=== PATIENT | female | born 1960 | race Hispanic/Latino ===

== ENCOUNTER 2018-11-24 15:59 | Emergency (ER) | payer BC ==
[2018-11-24 17:01] LABS: Absolute Lymphocytes (CBC) 1.8 K/uL (0.7-4.9); Absolute Monocytes 0.6 K/uL (0.1-1.3); Absolute Neutrophil 4.5 K/uL (1.8-8.0); Basophils % 0.9 % (0-1.3); Hematocrit 39.9 % (36.0-45.0); Lymphocytes % 26.1 % (15.3-44.8); MPV 8.5 fL (7.6-11.3); Monocytes % 7.8 % (3.3-12.3); RBC Red Blood Cell Count 4.68 M/uL (3.86-4.86)
[2018-11-24 17:12] LABS: Protime INR 1.05
--- NOTE | 2018-11-24 17:23 | RAD REPORT ---
EXAM DESCRIPTION: RAD - Chest Single View - 11/24/2018 5:16 pm CLINICAL HISTORY: DYSPNEA Chest pain. COMPARISON: Chest Pa And Lat (2 Views) dated 11/08/2018; Chest Single View dated 06/11/2016; CHEST SI NGLE VIEW dated 11/07/2011; CHEST PA AND LAT 2 VIEW dated 08/20/2005 FINDINGS: Portable technique limits examination quality. The lungs are grossly clear. The heart is normal in size. No displaced fractures. IMPRESSION: No acute intrathoracic process suspected.
[2018-11-24 17:28] LABS: Magnesium 2.2 mg/dL (1.8-2.4); Potassium 3.7 mmol/L (3.5-5.1); Thyroid Stimulating Hormone 1.72 uIU/mL (0.360-3.740)
[2018-11-24] MEDS ORDERED: LORazepam 2 MG/ML VIAL ONE (17:48)
[2018-11-24 18:01] LABS: Urine Blood TRACE (NEG); Urine Glucose NEGATIVE (NEG); Urine Protein NEGATIVE (NEG); Urine Specific Gravity 1.015 (1.005-1.030)
--- NOTE | 2018-11-24 18:04 | ER ---
Nurse's Notes [facility] Name: Kristen Alonzo Age: 58 yrs Sex: Female : 1960 Arrival Date: 11/24/2018 Time: 16:03 Bed 8 Private MD: Diagnosis: Panic disorder [episodic paroxysmal anxiety] without agoraphobia Presentation: 11/24 16:10 Presenting complaint: Patient states: Three weeks ago hit my chest hard, it was checked ch and everything is ok according to my Doctor. I have had pain since. Today I feel like my heart is racing, my jaw hurts, chest pain. I took 1/2 a xanax and it didn't help. Transition of care: patient was not received from another setting of care. Onset of symptoms. Risk Assessment: Do you want to hurt yourself or someone else? Patient reports no desire to harm self or others. Initial Sepsis Screen: Does the patient meet any 2 criteria? No. Patient's initial sepsis screen is negative. Does the patient have a suspected source of infection? No. Patient's initial sepsis screen is negative. Care prior to arrival: None. 16:10 Method Of Arrival: Ambulatory 16:10 Acuity: POLO 3 ch Triage Assessment: 16:14 General: Appears uncomfortable, Behavior is anxious. 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 - Social history:: Smoking status: Patient/guardian denies using tobacco. - Ebola Screening: : Patient negative for fever greater than or equal to 101.5 degrees Fahrenheit, and additional compatible Ebola Virus Disease symptoms Patient denies exposure to infectious person Patient denies travel to an Ebola-affected area in the 21 days before illness onset No symptoms or risks identified at this time. Screenin:52 Abuse screen: Denies threats or abuse. Denies injuries from another. Nutritional hb screening: No deficits noted. Tuberculosis screening: No symptoms or risk factors identified. Fall Risk None identified. Assessment: 16:32 General: Appears in no apparent distress. Behavior is cooperative, anxious, crying. hb Pain: Pain currently is 8 out of 10 on a pain scale. Neuro: Level of Consciousness is awake, alert, obeys commands, Oriented to person, place, time, situation. Cardiovascular: Capillary refill < 3 seconds Patient's skin is warm and dry. Respiratory: Airway is patent Respiratory effort is even, unlabored, Respiratory pattern is regular, symmetrical. GI: No signs and/or symptoms were reported involving the gastrointestinal system. : No signs and/or symptoms were reported regarding the genitourinary system. EENT: No signs and/or symptoms were reported regarding the EENT system. Derm: Skin is intact, is healthy with good turgor, Skin is pink, warm \T\ dry. Musculoskeletal: No signs and/or symptoms reported regarding the musculoskeletal system. 16:54 Reassessment: Pt ambulated to bathroom with steady gait, urine specimen provided. hb Assisted back to med, on monitor. Bed locked in low position, call light within reach. 17:31 Reassessment: Patient appears in no apparent distress at this time. Patient and/or hb family updated on plan of care and expected duration. Pain level reassessed. Patient is alert, oriented x 3, equal unlabored respirations, skin warm/dry/pink. 18:15 Reassessment: Patient appears in no apparent distress at this time. Patient and/or hb family updated on plan of care and expected duration. Pain level reassessed. Patient is alert, oriented x 3, equal unlabored respirations, skin warm/dry/pink. Patient states symptoms have improved. Vital Signs: 16:14 BP 142 / 92; Pulse 113; Resp 20; Temp 97.4; Pulse Ox 99% on R/A; Weight 69.4 kg; Height 5 ft. 4 in. (162.56 cm); Pain 8/10; 17:30 BP 137 / 80; Pulse 85; Resp 14; Pulse Ox 100% on R/A; hb 16:14 Body Mass Index 26.26 (69.40 kg, 162.56 cm) ED Course: 16:03 Patient arrived in ED. mr 16:11 Triage completed. 16:14 Arm band placed on left wrist. Patient placed in an exam room, on a stretcher. ch 16:24 Montserrat Valerio, RN is Primary Nurse. hb 16:27 Anoop Amaral PA is PHCP. jr8 16:27 Ifeanyi Marcelo MD is Attending Physician. jr8 16:45 Patient has correct armband on for positive identification. Placed in gown. Bed in low hb position. Call light in reach. Side rails up X 1. court recording monitor on. Pulse ox on. NIBP on. 16:52 Inserted saline lock: 20 gauge in right antecubital area, using aseptic technique. hb Blood collected. 17:16 XRAY Chest (1 view) In Process Unspecified. EDMS 18:15 No provider procedures requiring assistance completed. IV discontinued, intact, hb bleeding controlled, No redness/swelling at site. Pressure dressing applied. Administered Medications: 17:37 Drug: Ativan 0.5 mg Route: IVP; Site: right antecubital; hb 18:11 Follow up: Response: No adverse reaction; Anxiety decreased hb Outcome: 18:02 Discharge ordered by . jr8 18:15 Discharged to home ambulatory. hb 18:15 Condition: stable 18:15 Discharge instructions given to patient, Instructed on discharge instructions, follow up and referral plans. medication usage, Demonstrated understanding of instructions, follow-up care, medications. 18:27 Patient left the ED. sg Signatures: Dispatcher [employer] EDMI Sheron Miner RN RN Rubens Fernandez RN RN Elsy Tellez mr Anoop Amaral PA PA jr Montserrat Valerio RN RN hb
--- NOTE | 2018-11-24 18:04 | EDPHYS ---
Physician Documentation [facility] Name: Kristen Alonzo Age: 58 yrs Sex: Female : 1960 Arrival Date: 11/24/2018 Time: 16:03 Bed 8 Private MD: ED Physician Ifeanyi Marcelo HPI: 11/24 16:58 This 58 yrs old Female presents to ER via Ambulatory with complaints of jr8 Doesn't Feel Right. 16:58 Patient stated that she had chest trauma on and was seen and evaluated jr8 without acute fracture. Stated that she has been in pain since then but has been managing. Today stated that she started to not feel right. Stated that she feels like her whole body is being electrocuted and is anxious. Stated that she has continued chest pain and shortness of breath now . Severity of symptoms: At their worst the symptoms were moderate in the emergency department the symptoms are unchanged. The patient has not experienced similar symptoms in the past. The patient has been recently seen by a physician:. 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 - Social history:: Smoking status: Patient/guardian denies using tobacco. - Ebola Screening: : Patient negative for fever greater than or equal to 101.5 degrees Fahrenheit, and additional compatible Ebola Virus Disease symptoms Patient denies exposure to infectious person Patient denies travel to an Ebola-affected area in the 21 days before illness onset No symptoms or risks identified at this time. ROS: 16:58 Eyes: Negative for injury, pain, redness, and discharge, ENT: Negative for injury, jr8 pain, and discharge, Neck: Negative for injury, pain, and swelling, Abdomen/GI: Negative for abdominal pain, nausea, vomiting, diarrhea, and constipation, Back: Negative for injury and pain, MS/Extremity: Negative for injury and deformity, Skin: Negative for injury, rash, and discoloration, Neuro: Negative for headache, weakness, numbness, tingling, and seizure. 16:58 Cardiovascular: Positive for chest pain, with movement. 16:58 Respiratory: Positive for shortness of breath, Negative for cough, dyspnea on exertion, sputum production, wheezing. Exam: 16:58 Eyes: Pupils equal round and reactive to light, extra-ocular motions intact. Lids and jr8 lashes normal. Conjunctiva and sclera are non-icteric and not injected. Cornea within normal limits. Periorbital areas with no swelling, redness, or edema. ENT: Nares patent. No nasal discharge, no septal abnormalities noted. Tympanic membranes are normal and external auditory canals are clear. Oropharynx with no redness, swelling, or masses, exudates, or evidence of obstruction, uvula midline. Mucous membranes moist. Neck: Trachea midline, no thyromegaly or masses palpated, and no cervical lymphadenopathy. Supple, full range of motion without nuchal rigidity, or vertebral point tenderness. No Meningismus. Chest/axilla: Normal chest wall appearance and motion. Nontender with no deformity. No lesions are appreciated. Cardiovascular: Regular rate and rhythm with a normal S1 and S2. No gallops, murmurs, or rubs. Normal PMI, no JVD. No pulse deficits. Respiratory: Lungs have equal breath sounds bilaterally, clear to auscultation and percussion. No rales, rhonchi or wheezes noted. No increased work of breathing, no retractions or nasal flaring. Abdomen/GI: Soft, non-tender, with normal bowel sounds. No distension or tympany. No guarding or rebound. No evidence of tenderness throughout. Back: No spinal tenderness. No costovertebral tenderness. Full range of motion. Skin: Warm, dry with normal turgor. Normal color with no rashes, no lesions, and no evidence of cellulitis. MS/ Extremity: Pulses equal, no cyanosis. Neurovascular intact. Full, normal range of motion. Neuro: Awake and alert, GCS 15, oriented to person, place, time, and situation. Cranial nerves II-XII grossly intact. Motor strength 5/5 in all extremities. Sensory grossly intact. Cerebellar exam normal. Normal gait. 16:58 Psych: Behavior/mood is anxious. Vital Signs: 16:14 BP 142 / 92; Pulse 113; Resp 20; Temp 97.4; Pulse Ox 99% on R/A; Weight 69.4 kg; Height ch 5 ft. 4 in. (162.56 cm); Pain 8/10; 17:30 BP 137 / 80; Pulse 85; Resp 14; Pulse Ox 100% on R/A; hb 16:14 Body Mass Index 26.26 (69.40 kg, 162.56 cm) [facility]: 16:27 Patient medically screened. jr8 18:01 Data reviewed: vital signs, nurses notes, lab test result(s), EKG, radiologic studies, jr8 plain films, and as a result, I will discharge patient. Data interpreted: Pulse oximetry: on room air is 100 %. Interpretation: normal. Counseling: I had a detailed discussion with the patient and/or guardian regarding: the historical points, exam findings, and any diagnostic results supporting the discharge/admit diagnosis, lab results, radiology results, the need for outpatient follow up, a family practitioner, to return to the emergency department if symptoms worsen or persist or if there are any questions or concerns that arise at home. Response to treatment: the patient's symptoms have resolved after treatment. 18:02 ED course: Discussed with patient if she is having increased anxiety even on her benzo, jr8 that it is recommended that she get on an SSRI or SNRI combo and then eventually wean off of her Xanax. Patient agreed and would f/u with PCP after the weekend . 11/24 16:37 Order name: Basic Metabolic Panel; Complete Time: 17:50 11/24 16:37 Order name: CBC with Diff; Complete Time: 17:07 11/24 16:37 Order name: Magnesium; Complete Time: 17:50 11/24 16:37 Order name: NT PRO-BNP; Complete Time: 17:50 11/24 16:37 Order name: PT-INR; Complete Time: 17:21 11/24 16:37 Order name: TSH; Complete Time: 17:50 11/24 16:37 Order name: XRAY Chest (1 view); Complete Time: 17:24 11/24 16:37 Order name: EKG; Complete Time: 16:41 11/24 16:37 Order name: Cardiac monitoring; Complete Time: 16:51 11/24 16:37 Order name: EKG - Nurse/Tech; Complete Time: 16:51 11/24 16:37 Order name: T4 Free; Complete Time: 17:50 11/24 16:37 Order name: DD; Complete Time: 17:21 11/24 17:09 Order name: Urine Dipstick--Ancillary (enter results); Complete Time: 18:05 ms 11/24 16:37 Order name: IV Saline Lock; Complete Time: 16:52 11/24 16:37 Order name: Labs collected and sent; Complete Time: 16:52 11/24 16:37 Order name: O2 Per Protocol; Complete Time: 16:52 11/24 16:37 Order name: O2 Sat Monitoring; Complete Time: 16:52 Administered Medications: 17:37 Drug: Ativan 0.5 mg Route: IVP; Site: right antecubital; hb 18:11 Follow up: Response: No adverse reaction; Anxiety decreased hb Disposition: 11/24/18 18:02 Discharged to Home. Impression: Panic disorder [episodic paroxysmal anxiety] without agoraphobia. - Condition is Stable. - Discharge Instructions: Panic Attacks. - Medication Reconciliation Form, Thank You Letter, Antibiotic Education, Prescription Opioid Use form. - Follow up: Private Physician; When: 2 - 3 days; Reason: Recheck today's complaints, Continuance of care, Re-evaluation by your physician. - Problem is new. - Symptoms have improved. Addendum: 11/28/2018 09:53 Co-signature as Attending Physician, Ifeanyi Marcelo MD I agree with the assessment and c [place] plan of care. Signatures: Dispatcher [employer] Sheron Salas RN Rubens Worthington ch, RN RN sg Anderson, Corey, MD MD cha Roszak, Josh, PA PA jr8 Montserrat Valerio RN RN Corrections: (The following items were deleted from the chart) 11/24 18:27 18:02 11/24/2018 18:02 Discharged to Home. Impression: Panic disorder [episodic sg paroxysmal anxiety] without agoraphobia. Condition is Stable. Forms are Medication Reconciliation Form, Thank You Letter, Antibiotic Education, Prescription Opioid Use. Follow up: Private Physician; When: 2 - 3 days; Reason: Recheck today's complaints, Continuance of care, Re-evaluation by your physician. Problem is new. Symptoms have improved. jr8
[2018-11-24 19:46] VITALS: TEMP 97.4
[2018-11-24 19:47] VITALS: BP 137/80; O2SAT 100
--- NOTE | 2018-11-25 08:04 | EKG ---
Test Date: 2018-11-24 Test Time: 16:34:57 Services Delivery Driver: JUDY MEASUREMENT RESULTS: Intervals: Rate: 81 NV: 116 QRSD: 94 QT: 376 QTc: 436 [place]: P: 77 NV: 116 QRS: 67 T: 67 INTERPRETIVE STATEMENTS: Normal sinus rhythm Normal ECG Compared to ECG 06/11/2016 17:28:35 No significant changes Electronically Signed On 11-25-18 08:03:16 CDT by Miguelangel Maharaj
== END 2018-11-24 18:27 | disposition home or self-care (01) ==
LOC: ER 15:59
DX: F41.0 Panic disorder [episodic paroxysmal anxiety] (principal); E06.3 Autoimmune thyroiditis; E78.5 Hyperlipidemia, unspecified; F41.9 Anxiety disorder, unspecified; Z88.1 Allergy status to other antibiotic agents; Z88.5 Allergy status to narcotic agent
CPT/HCPCS: 36415; 71045; 80048; 81003; 83735; 83880; 84439; 84443; 85025; 85379; 85610; 93005; 96374; 99284

== ENCOUNTER 2019-03-19 12:08 | Emergency (ER) | payer BC ==
[2019-03-19 12:43] LABS: Absolute Lymphocytes (CBC) 1.3 K/uL (0.7-4.9); Basophils % 0.5 % (0-1.3); Hematocrit 38.5 % (36.0-45.0); Lymphocytes % 18.3 % (15.3-44.8); MPV 8.2 fL (7.6-11.3)
[2019-03-19 13:02] LABS: ALT/SGPT 16 U/L (12-78); AST/SGOT 17 U/L (15-37); Alkaline Phosphatase 72 U/L (45-117); BUN Blood Urea Nitrogen 15 mg/dL (7-18); Bicarbonate 26 mmol/L (21-32); Bilirubin Direct < 0.1 mg/dL (0-0.2); Bilirubin Total 0.2 mg/dL (0.2-1.0); Glucose Level 99 mg/dL (74-106); NT PRO-BNP 159 pg/mL (<125); Potassium 3.9 mmol/L (3.5-5.1); Protein, Total 8.5 g/dL (6.4-8.2); Sodium Level 138 mmol/L (136-145); Troponin (Emerg Dept Use Only) < 0.02 ng/mL (0.0-0.045)
[2019-03-19 13:06] LABS: Thyroid Stimulating Hormone 1.36 uIU/mL (0.360-3.740)
[2019-03-19] MEDS ORDERED: NA CHLORIDE 0.9% 500 ML ONE (13:21)
[2019-03-19] MEDS ORDERED: DIAZEPAM 5 MG TABLET ONE (15:34)
--- NOTE | 2019-03-19 15:48 | ER ---
Nurse's Notes [facility] Name: Kristen Alonzo Age: 58 yrs Sex: Female : 1960 Arrival Date: 03/19/2019 Time: 12:10 Bed 7 Private MD: Diagnosis: Chest pain, unspecified Presentation: 03/19 12:11 Presenting complaint: Patient states: Chest pain, heaviness in the left breast that aj1 started yesterday. Patient also reports shortness of breath. Patient states that she had a similar episode on , but she took aspirin and it resolved on its own. Patient reports palpitations yesterday, none today. Transition of care: patient was not received from another setting of care. Onset of symptoms was 2018. Risk Assessment: Do you want to hurt yourself or someone else? Patient reports no desire to harm self or others. Initial Sepsis Screen: Does the patient meet any 2 criteria? No. Patient's initial sepsis screen is negative. Does the patient have a suspected source of infection? No. Patient's initial sepsis screen is negative. Care prior to arrival: None. 12:11 Method Of Arrival: Ambulatory aj1 12:11 Acuity: POLO 3 aj1 Triage Assessment: 12:14 General: Appears in no apparent distress. comfortable, Behavior is calm, cooperative. aj1 Pain: Complains of pain in left breast Pain currently is 5 out of 10 on a pain scale. Neuro: Level of Consciousness is awake, alert, obeys commands. Cardiovascular: Patient's skin is warm and dry. Respiratory: Airway is patent Respiratory effort is even, unlabored, Respiratory pattern is regular, symmetrical. Historical: - Allergies: 12:14 Cipro PO; aj1 12:14 Codeine; aj1 12:14 Levofloxacin; aj1 - Home Meds: 12:14 [place] Thyroid Oral [Active]; pravastatin 40 mg Oral tab 1 tab once daily [Active]; aj1 Xanax 0.5 mg Oral tab 1 tab [Active]; - PMHx: 12:14 Anxiety; Taco's disease; Hyperlipidemia; osteoarthritis; aj1 - Immunization history:: Flu vaccine is up to date. - Social history:: Smoking status: Patient/guardian denies using tobacco. - Ebola Screening: : Patient denies travel to an Ebola-affected area in the 21 days before illness onset. - Family history:: not pertinent. - Hospitalizations: : No recent hospitalization is reported. Screenin:30 Abuse screen: Denies threats or abuse. Nutritional screening: No deficits noted. aa5 Tuberculosis screening: No symptoms or risk factors identified. Fall Risk None identified. Assessment: 12:20 General: Appears comfortable, Behavior is calm, cooperative. Pain: Complains of pain in aa5 under left breast Pain does not radiate. Pain currently is 5 out of 10 on a pain scale. Quality of pain is described as pressure, Pain began 1 day ago. Is continuous. Neuro: Level of Consciousness is awake, alert, obeys commands, Oriented to person, place, time, situation. Cardiovascular: Heart tones S1 S2 present Edema is absent. Rhythm is sinus rhythm. Respiratory: Reports shortness of breath on exertion Airway is patent Respiratory effort is even, unlabored, Respiratory pattern is regular, symmetrical, Breath sounds are clear bilaterally. GI: Abdomen is flat, non-distended, Bowel sounds present X 4 quads. Abd is soft and non tender X 4 quads. Patient currently denies nausea, vomiting. : No signs and/or symptoms were reported regarding the genitourinary system. EENT: No signs and/or symptoms were reported regarding the EENT system. Derm: Skin is pink, warm \T\ dry. Musculoskeletal: Range of motion: intact in all extremities. 13:19 Reassessment: To bedside to medicate pt. Dr. Benavidez notified of BP currently 119/84, Dr. huma Benaviedz states to give Nitro and 500cc NS bolus. . 13:19 Reassessment: Patient is alert, oriented x 3, equal unlabored respirations, skin aa5 warm/dry/pink. 13:25 Reassessment: Pt requesting to ambulate to the restroom before Nitro administration. Pt aa5 ambulatory to restroom with steady gait. . 13:29 Reassessment: Pt back from restroom. aa5 13:43 Reassessment: Patient is alert, oriented x 3, equal unlabored respirations, skin aa5 warm/dry/pink. Pt sitting up in bed. . 13:43 Pain: Pain currently is 4 out of 10 on a pain scale. aa5 14:15 Reassessment: Pt speaking on the phone with family at this time. . aa5 14:20 Reassessment: Pt agrees to repeat troponin and EKG at this time. MD was notified. . aa5 15:10 Reassessment: Patient is alert, oriented x 3, equal unlabored respirations, skin aa5 warm/dry/pink. Pt c/o anxiety at this time. Pt appears anxious. MD was notified. . 15:10 Cardiovascular: Rhythm is sinus rhythm. aa5 15:43 Reassessment: Patient appears in no apparent distress at this time. Patient and/or ae4 family updated on plan of care and expected duration. Pain level reassessed. Patient states feeling better. Patient states symptoms have improved. 16:40 Reassessment: Patient is alert, oriented x 3, equal unlabored respirations, skin aa5 warm/dry/pink. Patient states feeling better. Vital Signs: 12:14 BP 132 / 95; Pulse 88; Resp 18; Temp 97.4; Pulse Ox 99% on R/A; Weight 68.04 kg (R); aj1 Height 5 ft. 4 in. (162.56 cm) (R); Pain 5/10; 13:19 BP 119 / 84; Pulse 67; Resp 16 S; Pulse Ox 100% on R/A; aa5 13:29 BP 124 / 78; Pulse 71; Resp 16 S; Pulse Ox 100% on R/A; aa5 13:31 BP 127 / 78; Pulse 77; Resp 16 S; Pulse Ox 100% on R/A; aa5 13:35 BP 115 / 75; Pulse 92; Resp 16 S; Pulse Ox 100% on R/A; Pain 4/10; aa5 13:43 BP 114 / 75; Pulse 70; Resp 16 S; Pulse Ox 100% on R/A; aa5 14:47 BP 120 / 72; Pulse 71; Resp 14; Pulse Ox 100% ; ms 15:42 BP 118 / 72; Pulse 72; Resp 16; Pulse Ox 100% on R/A; ae4 16:35 BP 114 / 70; Pulse 72; Resp 16 S; Pulse Ox 99% on R/A; aa5 12:14 Body Mass Index 25.75 (68.04 kg, 162.56 cm) aj1 ED Course: 12:10 Patient arrived in ED. as 12:13 Triage completed. aj1 12:14 Arm band placed on Patient placed in an exam room. aj1 12:16 Linda Pride, RN is Primary Nurse. aa5 12:17 Cr Benavidez MD is Attending Physician. rn 12:20 Patient has correct armband on for positive identification. Placed in gown. Bed in low aa5 position. Call light in reach. Side rails up X2. quality assurance monitor body on. Pulse ox on. NIBP on. 12:30 Initial lab(s) drawn, by me, sent to lab. Inserted saline lock: 20 gauge in right aa5 antecubital area, using aseptic technique. Blood collected. 12:30 EKG done, by ED staff, reviewed by Cr Benavidez MD. ms 12:30 Patient maintains SpO2 saturation greater than 95% on room air. aa5 13:03 XRAY Chest (1 view) In Process Unspecified. EDMS 14:46 EKG done, by ED staff, reviewed by Cr Benavidez MD. ms 15:48 Hamilton Hernandez MD is Referral Physician. rn 16:40 No provider procedures requiring assistance completed. IV discontinued, intact, aa5 bleeding controlled, No redness/swelling at site. Pressure dressing applied. Administered Medications: 13:29 Drug: NS 0.9% 500 ml Route: IV; Rate: bolus; Site: right antecubital; aa5 14:00 Follow up: IV Status: Completed infusion; IV Intake: 500ml aa5 13:30 Drug: Nitroglycerin 0.4 mg Route: Sublingual; aa5 13:40 Follow up: Response: No adverse reaction aa5 15:36 Drug: Valium 5 mg Route: PO; aa5 16:40 Follow up: Response: No adverse reaction; Anxiety decreased aa5 Intake: 14:00 IV: 500ml; Total: 500ml. aa5 Outcome: 15:48 Discharge ordered by MD. rn 16:40 Discharged to home ambulatory. aa5 16:40 Condition: stable 16:40 Discharge instructions given to patient, Instructed on discharge instructions, follow up and referral plans. Demonstrated understanding of instructions, follow-up care. 16:50 Patient left the ED. aa5 Signatures: Dispatcher [employer] EDMS Melody Liu RN RN aj1 Luci Freedman Maria ms Cr Benavidez MD MD rn Calderon, Audri, RN RN aa5 Vinh Blas RN RN ae4 Corrections: (The following items were deleted from the chart) 13:43 13:35 BP 115 / 75; Pulse 92bpm; Resp 16bpm; Spontaneous; Pulse Ox 100% RA; aa5 aa5 18:35 16:59 Patient left the ED. aa5 aa5
--- NOTE | 2019-03-19 15:48 | EDPHYS ---
Physician Documentation [facility] Name: Kristen Alonzo Age: 58 yrs Sex: Female : 1960 Arrival Date: 03/19/2019 Time: 12:10 Bed 7 Private MD: ED Physician Cr Benavidez HPI: 03/19 12:37 This 58 yrs old Female presents to ER via Ambulatory with complaints of Chest rn Pain. 12:37 The patient or guardian reports chest pain that is located primarily in the substernal rn area. Onset: 2 day(s) ago. The pain radiates to Associated signs and symptoms: Pertinent positives: shortness of breath, Pertinent negatives: abdominal pain, cough, diaphoresis, dizziness, headache, near syncope, palpitations, syncope, vomiting. The chest pain is described as a heaviness, a pressure. Duration: The patient or guardian reports multiple episodes. Modifying factors: The symptoms are alleviated by nothing. the symptoms are aggravated by exertion. Severity of pain: At its worst the pain was mild in the emergency department the pain is unchanged. The patient has not experienced similar symptoms in the past. Reports felt chest tightness Wednesday, resolved with aspirin at the time, [place] better, but pain returned today. At 0800 when woke up, felt chest tightness, left sided, radiates to jaw and neck. Feels worse with exertion. NO fever/cough. Reports last stress test "years ago". No recent trauma. . Historical: - Allergies: 12:14 Cipro PO; aj1 12:14 Codeine; aj1 12:14 Levofloxacin; aj1 - Home Meds: 12:14 [place] Thyroid Oral [Active]; pravastatin 40 mg Oral tab 1 tab once daily [Active]; aj1 Xanax 0.5 mg Oral tab 1 tab [Active]; - PMHx: 12:14 Anxiety; Taco's disease; Hyperlipidemia; osteoarthritis; aj1 - Immunization history:: Flu vaccine is up to date. - Social history:: Smoking status: Patient/guardian denies using tobacco. - Ebola Screening: : Patient denies travel to an Ebola-affected area in the 21 days before illness onset. - Family history:: not pertinent. - Hospitalizations: : No recent hospitalization is reported. ROS: 12:37 Constitutional: Negative for fever, chills, and weight loss, Eyes: Negative for injury, rn pain, redness, and discharge, Neck: Negative for injury, and swelling, Cardiovascular: Negative for edema, + for chest pain Respiratory: Negative for shortness of breath, cough, wheezing, and pleuritic chest pain, Abdomen/GI: Negative for abdominal pain, nausea, vomiting, and constipation, MS/Extremity: Negative for injury and deformity, Skin: Negative for injury, rash, and discoloration, Neuro: Negative for headache, weakness, numbness, tingling, and seizure. Exam: 12:36 ECG was reviewed by the Attending Physician. rn 12:37 Constitutional: This is a well developed, well nourished patient who is awake, alert, rn seems anxious Head/Face: Normocephalic, atraumatic. ENT: MMM Cardiovascular: Regular rate and rhythm. No pulse deficits. Respiratory: Lungs have equal breath sounds bilaterally, clear to auscultation. No increased work of breathing, no retractions or nasal flaring. Abdomen/GI: soft, non-tender MS/ Extremity: Pulses equal, no cyanosis. Neurovascular intact. Full, normal range of motion. Equal circumference. + non-pitting edema bilateral lower ext. Neuro: Awake and alert, GCS 15, oriented to person, place, time, and situation. Cranial nerves II-XII grossly intact. Motor strength 5/5 in all extremities. Sensory grossly intact. Cerebellar exam normal. Normal gait. Vital Signs: 12:14 BP 132 / 95; Pulse 88; Resp 18; Temp 97.4; Pulse Ox 99% on R/A; Weight 68.04 kg (R); aj1 Height 5 ft. 4 in. (162.56 cm) (R); Pain 5/10; 13:19 BP 119 / 84; Pulse 67; Resp 16 S; Pulse Ox 100% on R/A; aa5 13:29 BP 124 / 78; Pulse 71; Resp 16 S; Pulse Ox 100% on R/A; aa5 13:31 BP 127 / 78; Pulse 77; Resp 16 S; Pulse Ox 100% on R/A; aa5 13:35 BP 115 / 75; Pulse 92; Resp 16 S; Pulse Ox 100% on R/A; Pain 4/10; aa5 13:43 BP 114 / 75; Pulse 70; Resp 16 S; Pulse Ox 100% on R/A; aa5 14:47 BP 120 / 72; Pulse 71; Resp 14; Pulse Ox 100% ; ms 15:42 BP 118 / 72; Pulse 72; Resp 16; Pulse Ox 100% on R/A; ae4 16:35 BP 114 / 70; Pulse 72; Resp 16 S; Pulse Ox 99% on R/A; aa5 12:14 Body Mass Index 25.75 (68.04 kg, 162.56 cm) aj1 MDM: 12:17 Patient medically screened. rn 14:32 Differential diagnosis: acute myocardial infarction, anxiety, coronary artery disease rn costochondritis, pericarditis, pleurisy, pneumothorax, stable angina, unstable angina. ED course: Patient with neg w/u so far, I recommended admission for ECHO/stress and cardiology consult in case this is cardiac. Patient declines, has discussed case with sister and girlfriend, she would like to go home. i convinced her to stay for repeat trop and ecg, and if normal can go home if she wishes. Understands risks of leaving without admission.. 15:46 Data reviewed: vital signs, nurses notes, lab test result(s), EKG, radiologic studies, rn plain films, and as a result, I will admit patient. Counseling: I had a detailed discussion with the patient and/or guardian regarding: the historical points, exam findings, and any diagnostic results supporting the discharge/admit diagnosis, lab results, radiology results, the need for further work-up and treatment in the hospital. Response to treatment: the patient's symptoms have mildly improved after treatment, and as a result, I will. Refusal of service: The patient/guardian displays adequate decision making capability and despite a detailed discussion of alternatives, benefits, risks, and consequences refuses: Admission to the hospital for further work-up and treatment. ED course: Second trop neg, repeat ecg without change. Will dc home per her wishes, states will f/u with cardiology. . 03/19 12:27 Order name: Basic Metabolic Panel; Complete Time: 13:11 rn 03/19 12:27 Order name: CBC with Diff; Complete Time: 13:11 rn 03/19 12:27 Order name: LFT's; Complete Time: 13:11 rn 03/19 12:27 Order name: NT PRO-BNP; Complete Time: 13:11 rn 03/19 12:27 Order name: Troponin (emerg Dept Use Only); Complete Time: 13:11 rn 03/19 12:30 Order name: TSH; Complete Time: 13:11 rn 03/19 12:27 Order name: XRAY Chest (1 view); Complete Time: 16:18 rn 03/19 12:27 Order name: EKG; Complete Time: 12:28 rn 03/19 12:30 Order name: T4 Free; Complete Time: 13:11 rn 03/19 14:34 Order name: Troponin (emerg Dept Use Only); Complete Time: 15:45 rn 03/19 14:34 Order name: EKG; Complete Time: 14:35 rn 03/19 12:27 Order name: Cardiac monitoring; Complete Time: 12:36 rn 03/19 12:27 Order name: EKG - Nurse/Tech; Complete Time: 12:36 rn 03/19 12:27 Order name: IV Saline Lock; Complete Time: 12:36 rn 03/19 12:27 Order name: Labs collected and sent; Complete Time: 12:36 rn 03/19 12:27 Order name: O2 Per Protocol; Complete Time: 12:36 rn 03/19 12:27 Order name: O2 Sat Monitoring; Complete Time: 12:36 rn 03/19 14:34 Order name: EKG - Nurse/Tech; Complete Time: 14:45 rn EC:36 Rate is 78 beats/min. Rhythm is regular. QRS [place] is Normal. DC interval is normal. QRS rn interval is normal. QT interval is normal. No Q waves. T waves are Normal. No ST changes noted. Clinical impression: NSR w/ Non-specific ST/T Changes. Interpreted by me. Reviewed by me. Administered Medications: 13:29 Drug: NS 0.9% 500 ml Route: IV; Rate: bolus; Site: right antecubital; aa5 14:00 Follow up: IV Status: Completed infusion; IV Intake: 500ml aa5 13:30 Drug: Nitroglycerin 0.4 mg Route: Sublingual; aa5 13:40 Follow up: Response: No adverse reaction aa5 15:36 Drug: Valium 5 mg Route: PO; aa5 16:40 Follow up: Response: No adverse reaction; Anxiety decreased aa5 Disposition: 03/19/19 15:48 Discharged to Home. Impression: Chest pain, unspecified. - Condition is Stable. - Discharge Instructions: Nonspecific Chest Pain. - Medication Reconciliation Form, Thank You Letter, Antibiotic Education, Prescription Opioid Use form. - Follow up: Hamilton Hernandez MD; When: As needed; Reason: Recheck today's complaints, Re-evaluation by your physician. - Problem is new. - Symptoms have improved. Signatures: Dispatcher [employer] EDMS Melody Liu RN RN aj1 Cr Benavidez MD MD rn Calderon, Audri, RN RN aa5 Corrections: (The following items were deleted from the chart) 16:59 15:48 03/19/2019 15:48 Discharged to Home. Impression: Chest pain, unspecified. aa5 Condition is Stable. Forms are Medication Reconciliation Form, Thank You Letter, Antibiotic Education, Prescription Opioid Use. Follow up: Hamilton Hernandez; When: As needed; Reason: Recheck today's complaints, Re-evaluation by your physician. Problem is new. Symptoms have improved. rn
[2019-03-19] MEDS ORDERED: NITROGLYCERIN 0.4 MG/TAB SL ONE (16:01)
--- NOTE | 2019-03-19 16:14 | RAD REPORT ---
EXAM DESCRIPTION: RAD - Chest Single View - 03/19/2019 1:04 pm CLINICAL HISTORY: Chest pain, shortness of breath COMPARISON: November 24 TECHNIQUE: AP portable chest image was obtained 1300 hours . FINDINGS: Lungs are clear. Heart and vasculature are normal. No measurable pleural effusion and no p neumothorax. No acute bony abnormality seen. No acute aortic findings suspected. IMPRESSION: No acute cardiopulmonary process.
[2019-03-19 18:12] VITALS: TEMP 97.4
[2019-03-19 18:14] VITALS: O2SAT 100
[2019-03-19 18:23] VITALS: BP 118/72
--- NOTE | 2019-03-20 09:47 | EKG ---
Test Date: 2019-03-19 Test Time: 14:39:34 Other Sales Support Worker: MEASUREMENT RESULTS: Intervals: Rate: 69 MD: 126 QRSD: 96 QT: 432 QTc: 462 [place]: P: 75 MD: 126 QRS: 65 T: 57 INTERPRETIVE STATEMENTS: Normal sinus rhythm normal ECG Compared to ECG 03/19/2019 12:26:58 No significant changes Electronically Signed On 03-20-19 09:46:48 CDT by Miguelangel Maharaj
--- NOTE | 2019-03-20 09:49 | EKG ---
Test Date: 2019-03-19 Test Time: 12:26:58 Branch Services Manager: MEASUREMENT RESULTS: Intervals: Rate: 78 ID: [id number] QRSD: 92 QT: 404 QTc: 460 [place]: P: 71 ID: [id number] QRS: 66 T: 52 INTERPRETIVE STATEMENTS: Normal sinus rhythm normal ECG Compared to ECG 11/24/2018 16:34:57 no significant change from previous ECG Electronically Signed On 03-20-19 09:48:24 CDT by Miguelangel Maharaj
== END 2019-03-19 16:59 | disposition home or self-care (01) ==
LOC: ER 12:08
DX: R07.9 Chest pain, unspecified (principal); Z88.6 Allergy status to analgesic agent; Z88.1 Allergy status to other antibiotic agents; F41.9 Anxiety disorder, unspecified; E78.5 Hyperlipidemia, unspecified
CPT/HCPCS: 93005 ×2; 85025; 80048; 36415; 80076; 84443; 84484 ×2; 84439; 83880; 71045; 96360; 99285; J7040

== ENCOUNTER 2019-05-18 20:34 | Emergency (ER) | payer BC ==
--- NOTE | 2019-05-18 21:48 | RAD REPORT ---
EXAM DESCRIPTION: RAD - Chest Single View - 05/18/2019 9:24 pm CLINICAL HISTORY: Cough;SOB Chest pain. COMPARISON: Chest Single View dated 03/19/2019; Chest Single View dated 11/24/2018; Chest Pa And Lat ( 2 Views) dated 11/08/2018; Chest Single View dated 06/11/2016 FINDINGS: Portable technique limits examination quality. Interstitial lung markings are prominent. A small left retroareolar opacity is noted which may repres ent a small infiltrate/ developing pneumonia or aspiration. The heart is normal in size. No displaced fractures.
--- NOTE | 2019-05-18 21:58 | EDPHYS ---
Physician Documentation [facility] Name: Kristen Alonzo Age: 58 yrs Sex: Female : 1960 Arrival Date: 05/18/2019 Time: 20:36 Bed 17 Private MD: ED Physician Ifeanyi Marcelo HPI: 05/18 22:33 This 58 yrs old Female presents to ER via Ambulatory with complaints of Shaky snw Chills. 22:33 Onset: The symptoms/episode began/occurred suddenly, today. Associated signs and snw symptoms: Pertinent positives: lower temp, shakiness. Modifying factors: the patient symptoms are aggravated by activity. The patient has experienced similar episodes in the past. 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 Historical: - Allergies: 20:59 Cipro PO; aa1 20:59 Codeine; aa1 20:59 Levofloxacin; aa1 - Home Meds: 20:59 [place] Thyroid Oral [Active]; Xanax 0.5 mg Oral tab 1 tab [Active]; aa1 - PMHx: 20:59 Anxiety; Taco's disease; Hyperlipidemia; osteoarthritis; aa1 - PSHx: 20:59 Knee surgery; aa1 - Immunization history:: Adult Immunizations up to date. - Social history:: Smoking status: Patient/guardian denies using tobacco, never smoked. - Ebola Screening: : Patient negative for fever greater than or equal to 101.5 degrees Fahrenheit, and additional compatible Ebola Virus Disease symptoms Patient denies exposure to infectious person Patient denies travel to an Ebola-affected area in the 21 days before illness onset. ROS: 22:31 Eyes: Negative for injury, pain, redness, and discharge, ENT: Negative for injury, snw pain, and discharge, Neck: Negative for injury, pain, and swelling, Cardiovascular: Negative for chest pain, palpitations, and edema, Respiratory: Negative for shortness of breath, cough, wheezing, and pleuritic chest pain, Abdomen/GI: Negative for abdominal pain, nausea, vomiting, diarrhea, and constipation, Back: Negative for injury and pain, : Negative for injury, bleeding, discharge, and swelling, MS/Extremity: Negative for injury and deformity, Neuro: Negative for headache, weakness, numbness, tingling, and seizure. 22:31 Constitutional: Positive for body aches, chills, malaise. 22:31 Skin: Positive for Exam: 22:29 Head/Face: Normocephalic, atraumatic. Eyes: Pupils equal round and reactive to light, snw extra-ocular motions intact. Lids and lashes normal. Conjunctiva and sclera are non-icteric and not injected. Cornea within normal limits. Periorbital areas with no swelling, redness, or edema. ENT: Nares patent. No nasal discharge, no septal abnormalities noted. Tympanic membranes are normal and external auditory canals are clear. Oropharynx with no redness, swelling, or masses, exudates, or evidence of obstruction, uvula midline. Mucous membranes moist. Recent extraction, biopsy to right mandible, no evidence of infection Neck: Trachea midline, no thyromegaly or masses palpated, and no cervical lymphadenopathy. Supple, full range of motion without nuchal rigidity, or vertebral point tenderness. No Meningismus. Chest/axilla: Normal chest wall appearance and motion. Nontender with no deformity. No lesions are appreciated. Cardiovascular: Regular rate and rhythm with a normal S1 and S2. No gallops, murmurs, or rubs. Normal PMI, no JVD. No pulse deficits. Respiratory: Lungs have equal breath sounds bilaterally, clear to auscultation and percussion. No rales, rhonchi or wheezes noted. No increased work of breathing, no retractions or nasal flaring. Abdomen/GI: Soft, non-tender, with normal bowel sounds. No distension or tympany. No guarding or rebound. No evidence of tenderness throughout. Back: No spinal tenderness. No costovertebral tenderness. Full range of motion. Skin: Warm, dry with normal turgor. Normal color with no rashes, no lesions, and no evidence of cellulitis. MS/ Extremity: Pulses equal, no cyanosis. Neurovascular intact. Full, normal range of motion. Neuro: Awake and alert, GCS 15, oriented to person, place, time, and situation. Cranial nerves II-XII grossly intact. Motor strength 5/5 in all extremities. Sensory grossly intact. Cerebellar exam normal. Normal gait. 22:29 Constitutional: The patient appears alert, awake, anxious. 22:29 Psych: Behavior/mood is anxious, Affect is animated. Vital Signs: 21:00 BP 141 / 100; Pulse 87; Resp 17; Temp 97.8; Pulse Ox 97% ; Weight 68.04 kg; Height 5 aa1 ft. 4 in. (162.56 cm); Pain 0/10; 21:32 BP 131 / 76; Pulse 75; Resp 18; Pulse Ox 100% on R/A; wh 22:00 BP 118 / 78 Supine; Pulse 73; Resp 17; Pulse Ox 100% on R/A; mw2 22:02 BP 127 / 80 Sitting; Pulse 82; Resp 16; Pulse Ox 100% on R/A; mw2 22:02 BP 133 / 78 Standing; Pulse 75; Resp 18; Pulse Ox 100% on R/A; mw2 21:00 Body Mass Index 25.75 (68.04 kg, 162.56 cm) aa1 MDM: 21:03 Patient medically screened. [facility] 22:31 Data reviewed: vital signs, nurses notes. Data interpreted: Pulse oximetry: on room air snw is 100 %. Interpretation: normal. Counseling: I had a detailed discussion with the patient and/or guardian regarding: the historical points, exam findings, and any diagnostic results supporting the discharge/admit diagnosis, radiology results, the need for outpatient follow up, to return to the emergency department if symptoms worsen or persist or if there are any questions or concerns that arise at home. Special discussion: Based on the history and exam findings, there is no indication for further emergent testing or inpatient evaluation. I discussed with the patient/guardian the need to see the primary care provider for further evaluation of the symptoms. 05/18 21:05 Order name: Flu snw 05/18 21:05 Order name: Chest Single View XRAY; Complete Time: 21:52 snw 05/18 22:21 Order name: INCENTIVE SPIROMETRY snw 05/18 21:33 Order name: Orthostatics; Complete Time: 21:57 snw Administered Medications: 21:58 CANCELLED (other intervention used): Augmentin 875 mg PO once snw 22:03 Drug: Zithromax 500 mg Route: PO; 22:33 Follow up: Response: No adverse reaction Disposition: 05/19 07:39 Co-signature as Attending Physician, Ifeanyi Marcelo MD I agree with the assessment and [facility] plan of care. Disposition: 05/18/19 21:57 Discharged to Home. Impression: Pneumonia, unspecified organism. - Condition is Stable. - Discharge Instructions: Community-Acquired Pneumonia, Adult. - Prescriptions for promethazine 25 mg Oral Tablet - take 1 tablet by ORAL route every 6 hours As needed; 15 tablet. Zithromax 500 mg Oral Tablet - take 1 tablet by ORAL route once daily for 5 days; 5 tablet. - Medication Reconciliation Form, Thank You Letter, Antibiotic Education, Prescription Opioid Use form. - Follow up: Private Physician; When: 2 - 3 days; Reason: Recheck today's complaints, Continuance of care, Re-evaluation by your physician. Follow up: Emergency Department; When: As needed; Reason: Worsening of condition. Signatures: Dispatcher [employer] EDCora Cullen RN RN aaIfeanyi Mendoza, Poly Cheatham MD, cha, YARN TEXTURING MACHINE OPERATOR-C YARN TEXTURING MACHINE OPERATOR-Margarita Donato Corrections: (The following items were deleted from the chart) 05/18 21:58 21:56 Augmentin 875 mg PO once ordered. snw snw 22:34 21:57 05/18/2019 21:57 Discharged to Home. Impression: Pneumonia, unspecified organism. wh Condition is Stable. Forms are Medication Reconciliation Form, Thank You Letter, Antibiotic Education, Prescription Opioid Use. Follow up: Private Physician; When: 2 - 3 days; Reason: Recheck today's complaints, Continuance of care, Re-evaluation by your physician. Follow up: Emergency Department; When: As needed; Reason: Worsening of condition. snw
--- NOTE | 2019-05-18 21:58 | ER ---
Nurse's Notes [facility] Name: Kristen Alonzo Age: 58 yrs Sex: Female : 1960 Arrival Date: 05/18/2019 Time: 20:36 Bed 17 Private MD: Diagnosis: Pneumonia, unspecified organism Presentation: 05/18 20:55 Presenting complaint: Patient states: I started getting chills, feet short of breath aa1 and out of it about 2 hours ago. I think I over exerted myself today. Transition of care: patient was not received from another setting of care. Onset of symptoms was May 18, 2019. Risk Assessment: Do you want to hurt yourself or someone else? Patient reports no desire to harm self or others. Initial Sepsis Screen: Does the patient meet any 2 criteria? No. Patient's initial sepsis screen is negative. Does the patient have a suspected source of infection? No. Patient's initial sepsis screen is negative. Care prior to arrival: Medication(s) given: xanax. 20:55 Method Of Arrival: Ambulatory aa1 20:55 Acuity: POLO 3 aa1 Historical: - Allergies: 20:59 Cipro PO; aa1 20:59 Codeine; aa1 20:59 Levofloxacin; aa1 - Home Meds: 20:59 [place] Thyroid Oral [Active]; Xanax 0.5 mg Oral tab 1 tab [Active]; aa1 - PMHx: 20:59 Anxiety; Taco's disease; Hyperlipidemia; osteoarthritis; aa1 - PSHx: 20:59 Knee surgery; aa1 - Immunization history:: Adult Immunizations up to date. - Social history:: Smoking status: Patient/guardian denies using tobacco, never smoked. - Ebola Screening: : Patient negative for fever greater than or equal to 101.5 degrees Fahrenheit, and additional compatible Ebola Virus Disease symptoms Patient denies exposure to infectious person Patient denies travel to an Ebola-affected area in the 21 days before illness onset. Screenin:31 Abuse screen: Denies threats or abuse. Denies injuries from another. Nutritional wh screening: No deficits noted. Tuberculosis screening: No symptoms or risk factors identified. Fall Risk None identified. Assessment: 21:29 Reassessment: Pt refusing Flu swab, provider notified. General: Appears in no apparent wh distress. Behavior is calm, cooperative, appropriate for age. Pain: Denies pain. Neuro: Level of Consciousness is awake, alert, obeys commands, Oriented to person, place, time, situation, Appropriate for age. Cardiovascular: Capillary refill < 3 seconds. Respiratory: Airway is patent Respiratory effort is even, unlabored, Respiratory pattern is regular, symmetrical. GI: Abdomen is flat, non-distended. : No signs and/or symptoms were reported regarding the genitourinary system. EENT: No signs and/or symptoms were reported regarding the EENT system. Derm: Skin is intact, is healthy with good turgor, Skin is pink, warm \T\ dry. normal. Musculoskeletal: Circulation, motion, and sensation intact. 22:32 Reassessment: Patient appears in no apparent distress at this time. No changes from previously documented assessment. Patient and/or family updated on plan of care and expected duration. Pain level reassessed. Patient is alert, oriented x 3, equal unlabored respirations, skin warm/dry/pink. Provider at bedside explaining POC. Vital Signs: 21:00 BP 141 / 100; Pulse 87; Resp 17; Temp 97.8; Pulse Ox 97% ; Weight 68.04 kg; Height 5 aa1 ft. 4 in. (162.56 cm); Pain 0/10; 21:32 BP 131 / 76; Pulse 75; Resp 18; Pulse Ox 100% on R/A; wh 22:00 BP 118 / 78 Supine; Pulse 73; Resp 17; Pulse Ox 100% on R/A; mw2 22:02 BP 127 / 80 Sitting; Pulse 82; Resp 16; Pulse Ox 100% on R/A; mw2 22:02 BP 133 / 78 Standing; Pulse 75; Resp 18; Pulse Ox 100% on R/A; mw2 21:00 Body Mass Index 25.75 (68.04 kg, 162.56 cm) aa1 ED Course: 20:36 Patient arrived in ED. ds1 20:58 Triage completed. aa1 21:00 Arm band placed on left wrist. aa1 21:01 Poly [place] FNP-C is PHCP. snw 21:01 Ifeanyi Marcelo MD is Attending Physician. snw 21:02 Margarita Strickland is Primary Nurse. wh 21:23 Chest Single View XRAY In Process Unspecified. EDMS 21:31 Patient has correct armband on for positive identification. Bed in low position. Call light in reach. Side rails up X 1. Pulse ox on. NIBP on. 22:33 No provider procedures requiring assistance completed. Patient did not have IV access during this emergency room visit. Administered Medications: :58 CANCELLED (other intervention used): Augmentin 875 mg PO once snw 22:03 Drug: Zithromax 500 mg Route: PO; 22:33 Follow up: Response: No adverse reaction Outcome: :57 Discharge ordered by MD. snw 22:33 Discharged to home ambulatory, with family. 22:33 Condition: stable 22:33 Discharge instructions given to patient, family, Instructed on discharge instructions, follow up and referral plans. medication usage, POC PNA and IS Demonstrated understanding of instructions, follow-up care, medications, POC Prescriptions given X 2. 22:34 Patient left the ED. Signatures: Dispatcher [employer] EDKY Cora Zhao RN RN aa1 Poly [place], ROAD DRIVER-C ROAD DRIVER-Sujatha Valencia ds1 Margarita Strickland Maurizio Harding mw2
[2019-05-18] MEDS ORDERED: AMOX/K CLAV 875 MG TAB ONE (22:02)
[2019-05-18] MEDS ORDERED: AZITHROMYCIN 250 MG TAB ONE (22:04)
[2019-05-18 23:59] VITALS: O2SAT 100
[2019-05-19 01:02] VITALS: BP 133/78
[2019-05-19 01:08] VITALS: TEMP 99.2
== END 2019-05-18 22:34 | disposition home or self-care (01) ==
LOC: ER 20:34
DX: J18.9 Pneumonia, unspecified organism (principal); F41.9 Anxiety disorder, unspecified; E78.5 Hyperlipidemia, unspecified; E06.3 Autoimmune thyroiditis; Z88.1 Allergy status to other antibiotic agents; Z88.3 Allergy status to other anti-infective agents; Z88.5 Allergy status to narcotic agent
CPT/HCPCS: 71045; 99284

== ENCOUNTER 2020-01-15 11:20 | Emergency (ER) | payer BC ==
[2020-01-15 14:25] LABS: Hematocrit 37.7 % (36.0-45.0); Lymphocytes % 31.5 % (15.3-44.8); RBC Red Blood Cell Count 4.38 M/uL (3.86-4.86)
[2020-01-15 14:34] LABS: ALT/SGPT 14 U/L (12-78); AST/SGOT 12 U/L (15-37); Albumin 3.8 g/dL (3.4-5.0); Alkaline Phosphatase 67 U/L (45-117); BUN Blood Urea Nitrogen 9 mg/dL (7-18); Bicarbonate 27 mmol/L (21-32); Bilirubin Direct < 0.1 mg/dL (0-0.2); Bilirubin Total 0.3 mg/dL (0.2-1.0); Glucose Level 91 mg/dL (74-106); Lipase 130 U/L (73-393); Potassium 3.7 mmol/L (3.5-5.1); Protein, Total 8.1 g/dL (6.4-8.2); Sodium Level 138 mmol/L (136-145)
--- NOTE | 2020-01-15 14:59 | RAD REPORT ---
EXAM DESCRIPTION: CT - Abdomen Pelvis W Contrast - 01/15/2020 2:36 pm CLINICAL HISTORY: Abdominal pain COMPARISON: 2016 TECHNIQUE: Computed axial tomography of the abdomen pelvis was obtained. 100 cc Isovue-300 was admin istered intravenously. Oral contrast was not requested which limits evaluation of bowel. All CT scans are performed using dose optimization technique as appropriate and may include automated exposure control or mA/KV adjustment according to patient size. FINDINGS: The liver, spleen, pancreas, adrenal and kidneys appear unremarkable. There is no evidence of diverticulitis. Normal appendix IMPRESSION: No acute abnormality is displayed.
[2020-01-15] MEDS ORDERED: HYDROMORPHONE HCL 0.5 MG/0.5 ML INJ ONE (15:00)
[2020-01-15] MEDS ORDERED: NA CHLORIDE 0.9% 1,000 ML ONE (15:01)
[2020-01-15] MEDS ORDERED: ONDANSETRON 4 MG/2 ML VIAL ONE (15:02)
--- NOTE | 2020-01-15 15:37 | ER ---
Nurse's Notes [facility] Name: Kristen Alonzo Age: 59 yrs Sex: Female : 1960 Arrival Date: 01/15/2020 Time: 11:22 Bed 27 Private MD: Ari Avalos E Diagnosis: Diarrhea, unspecified;Other abdominal pain Presentation: 01/14 11:31 Chief complaint: Patient states: RLQ pain stared 0500 yesterday, intermittent. Diarrhea ca1 last night. Denies N/V. Denies Urinary symptoms. Coronavirus screen: Client denies travel out of the [place] in the last 14 days. At this time, the client does not indicate any symptoms associated with coronavirus-19. Ebola Screen: Patient negative for fever greater than or equal to 101.5 degrees Fahrenheit, and additional compatible Ebola Virus Disease symptoms Patient denies exposure to infectious person. Patient denies travel to an Ebola-affected area in the 21 days before illness onset. No symptoms or risks identified at this time. Initial Sepsis Screen: Does the patient meet any 2 criteria? No. Patient's initial sepsis screen is negative. Does the patient have a suspected source of infection? No. Patient's initial sepsis screen is negative. Risk Assessment: Do you want to hurt yourself or someone else? Patient reports no desire to harm self or others. Onset of symptoms was January 15, 2020. 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 - Social history:: Smoking status: Patient denies any tobacco usage or history of. Screenin:26 Abuse screen: Denies threats or abuse. Denies injuries from another. Nutritional ks7 screening: No deficits noted. Nutritional screening: No deficits noted. Tuberculosis screening: No symptoms or risk factors identified. Fall Risk None identified. Assessment: 12:26 Reassessment: Patient is alert, oriented x 3, equal unlabored respirations, skin ks7 warm/dry/pink. General: Appears uncomfortable, Behavior is calm, cooperative. Pain: Complains of pain in abdomen, RLQ pain Pain does not radiate. Pain currently is 0 out of 10 on a pain scale. at worst was 8 out of 10 on a pain scale. Quality of pain is described as sharp, Pain began 1 day ago. Is intermittent. GI: Bowel sounds present X 4 quads. Abd is soft and non tender no pain on palpation. intermittent sharp pain Abd is soft X 4 quads. 15:12 Reassessment: Patient is alert, oriented x 3, equal unlabored respirations, skin ks7 warm/dry/pink. 16:02 Reassessment: pt ambulated to bathroom steady on feet. ks7 16:20 Reassessment: pt refused IV antibiotics d/t her hypersensitivity reaction to ks7 medications. MD notified. will come talk to pt before dc. 16:40 Reassessment: DC on hold until MD comes to bedside to talk to pt, discuss antibiotics ks7 and dc plan of care. Vital Signs: 11:31 BP 127 / 84; Pulse 85; Resp 16 S; Temp 98.6(O); Pulse Ox 98% on R/A; Weight 63.5 kg ca1 (R); Height 5 ft. 4 in. (162.56 cm) (R); Pain 5/10; 12:26 BP 104 / 72; Pulse 84; Resp 18; Temp 98.6; Pulse Ox 100% on R/A; Pain 5/10; ks7 13:34 BP 116 / 72; Pulse 72; Resp 16; Pulse Ox 100% ; Pain 0/10; ks7 14:30 BP 123 / 78; Pulse 73; Resp 16; Temp 98.3(O); Pulse Ox 100% on R/A; Pain 0/10; ks7 15:00 BP 119 / 80; Pulse 62; Resp 16; Pulse Ox 100% on R/A; Pain 0/10; ks7 15:45 BP 107 / 67; Pulse 64; Resp 18; Pulse Ox 100% on R/A; Pain 0/10; ks7 11:31 Body Mass Index 24.03 (63.50 kg, 162.56 cm) ca1 ED Course: 11:22 Patient arrived in ED. ag5 11:22 Ari Avalos MD is Private Physician. ag5 11:32 Triage completed. ca1 11:33 Arm band placed on right wrist. ca1 11:33 Patient has correct armband on for positive identification. Placed in gown. Bed in low ca1 position. Call light in reach. Side rails up X 1. Pulse ox on. NIBP on. Warm blanket given. 12:04 Sherry Wilburn, GURWINDER is Primary Nurse. ks7 12:26 Resting quietly. ks7 12:26 No provider procedures requiring assistance completed. ks7 12:27 Ifeanyi Marcelo MD is Attending Physician. maggie 13:34 Inserted saline lock: 20 gauge in left antecubital area, using aseptic technique. Blood ks7 collected. 14:36 CT Abd/Pelvis - IV Contrast Only In Process Unspecified. EDMS 14:46 Urine Culture Sent. ks7 15:35 Ari Avalos MD is Referral Physician. [facility] 15:47 warm blanket given to pt. ks7 17:34 IV discontinued, intact, bleeding controlled, No redness/swelling at site. Pressure ks7 dressing applied. Administered Medications: Discontinued: NS 0.9% 1000 ml IV at 1 bolus Per protocol; 1000 mL bolus 14:56 Not Given (Patient Refused): Dilaudid 0.5 mg IVP once; RASS on ADMIN: Combtv4, Very ks7 Agttd3, Agttd2, Rstlss1, AlertClm0, Drwsy-1, Lt Sdtn-2, Mod Sdtn-3, Dp Sdtn-4, UnArsble-5 14:56 Not Given (Patient Refused): Dilaudid 0.5 mg IVP once; RASS on ADMIN: Combtv4, Very ks7 Agttd3, Agttd2, Rstlss1, AlertClm0, Drwsy-1, Lt Sdtn-2, Mod Sdtn-3, Dp Sdtn-4, UnArsble-5 14:56 Not Given (Patient Refused): Zofran (Ondansetron) 4 mg IVP once; over 2 minutes ks7 14:57 Drug: NS 0.9% 1000 ml Route: IV; Rate: 1 bolus; Site: left antecubital; ks7 16:20 Not Given (Patient Refused): Rocephin 1 grams IV at per protocol once; Given slow IV ks7 push per pharmacy instructions Outcome: 15:36 Discharge ordered by MD. serrano 17:34 Discharged to home ambulatory. ks7 17:34 Condition: good 17:34 Discharge instructions given to patient, Instructed on discharge instructions, medication usage, Demonstrated understanding of instructions, medications, Prescriptions given X 2. 17:35 Patient left the ED. ks7 Signatures: Dispatcher [employer] EDME Ifeanyi Marcelo MD MD cha Acob, Cheryl, RN RN ca1 Giovanni Bales 5 Sherry Wilburn RN RN ks7 Corrections: (The following items were deleted from the chart) 15:12 14:57 BP 123 / 78; Pulse 73bpm; Resp 16bpm; Pulse Ox 100% RA; Temp 98.3F Oral; Pain ks7 0/10; ks7 16:19 16:03 Rocephin 1 grams IV at per protocol in left antecubital ks7 ks7
--- NOTE | 2020-01-15 15:37 | EDPHYS ---
Physician Documentation [facility] Name: Kristen Alonzo Age: 59 yrs Sex: Female : 1960 Arrival Date: 01/15/2020 Time: 11:22 Bed 27 Private MD: Ari Avalos E ED Physician Ifeanyi Marcelo HPI: 01/14 14:03 This 59 yrs old Female presents to ER via Ambulatory with complaints of maggie Abdominal Pain. 14:03 The patient presents with abdominal pain right lower quadrant. Onset: The maggie symptoms/episode began/occurred 1 day(s) ago. The patient presents with pelvic pain. Onset: The symptoms/episode began/occurred 1 day(s) ago. Modifying factors: The symptoms are alleviated by nothing, the symptoms are aggravated by nothing. Associated signs and symptoms: The patient has no apparent associated signs or symptoms. Severity of symptoms: At their worst the symptoms were mild, in the emergency department the symptoms are unchanged. The patient is sexually active, reportedly has a single partner. The symptoms do not radiate. 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 - Social history:: Smoking status: Patient denies any tobacco usage or history of. ROS: 14:04 Constitutional: Negative for fever, chills, and weight loss, Eyes: Negative for injury, maggie pain, redness, and discharge, ENT: Negative for injury, pain, and discharge, Neck: Negative for injury, pain, and swelling, Cardiovascular: Negative for chest pain, palpitations, and edema, Respiratory: Negative for shortness of breath, cough, wheezing, and pleuritic chest pain, Back: Negative for injury and pain, : Negative for injury, bleeding, discharge, and swelling, MS/Extremity: Negative for injury and deformity, Skin: Negative for injury, rash, and discoloration, Neuro: Negative for headache, weakness, numbness, tingling, and seizure, Psych: Negative for depression, anxiety, suicide ideation, homicidal ideation, and hallucinations, Allergy/Immunology: Negative for hives, rash, and allergies, Endocrine: Negative for neck swelling, polydipsia, polyuria, polyphagia, and marked weight changes, Hematologic/Lymphatic: Negative for swollen nodes, abnormal bleeding, and unusual bruising. 14:04 Abdomen/GI: Positive for abdominal pain, of the anterior aspect of right lateral abdomen and right lower quadrant. Exam: 14:05 Constitutional: This is a well developed, well nourished patient who is awake, alert, maggie and in no acute distress. Head/Face: Normocephalic, atraumatic. Eyes: Pupils equal round and reactive to light, extra-ocular motions intact. Lids and lashes normal. Conjunctiva and sclera are non-icteric and not injected. Cornea within normal limits. Periorbital areas with no swelling, redness, or edema. ENT: Nares patent. No nasal discharge, no septal abnormalities noted. Tympanic membranes are normal and external auditory canals are clear. Oropharynx with no redness, swelling, or masses, exudates, or evidence of obstruction, uvula midline. Mucous membranes moist. Neck: Trachea midline, no thyromegaly or masses palpated, and no cervical lymphadenopathy. Supple, full range of motion without nuchal rigidity, or vertebral point tenderness. No Meningismus. Chest/axilla: Normal chest wall appearance and motion. Nontender with no deformity. No lesions are appreciated. Cardiovascular: Regular rate and rhythm with a normal S1 and S2. No gallops, murmurs, or rubs. Normal PMI, no JVD. No pulse deficits. Respiratory: Lungs have equal breath sounds bilaterally, clear to auscultation and percussion. No rales, rhonchi or wheezes noted. No increased work of breathing, no retractions or nasal flaring. Back: No spinal tenderness. No costovertebral tenderness. Full range of motion. Female : Normal external genitalia. Skin: Warm, dry with normal turgor. Normal color with no rashes, no lesions, and no evidence of cellulitis. MS/ Extremity: Pulses equal, no cyanosis. Neurovascular intact. Full, normal range of motion. Neuro: Awake and alert, GCS 15, oriented to person, place, time, and situation. Cranial nerves II-XII grossly intact. Motor strength 5/5 in all extremities. Sensory grossly intact. Cerebellar exam normal. Normal gait. Psych: Awake, alert, with orientation to person, place and time. Behavior, mood, and affect are within normal limits. 14:05 Abdomen/GI: Inspection: abdomen appears normal, Bowel sounds: normal, Palpation: mild abdominal tenderness, in the right lower quadrant. 14:05 Back: pain, that is very mild, ROM is normal, normal spinal alignment noted, CVA tenderness. 14:05 : CVA tenderness, is absent. 14:05 Musculoskeletal/extremity: Exam is negative for 14:05 Skin: injury, is not appreciated, no rash present. 14:05 Neuro: Exam negative for acute changes, Orientation: is normal, appropriate for stated age, no acute changes, Mentation: is normal, appropriate for stated age, no acute changes, Memory: is normal, appropriate for stated age, no acute changes, Cranial nerves: grossly normal, is grossly normal based on the patient's age, no acute changes, Cerebellar function: is grossly normal, is grossly normal based on the patient's age, no acute changes, Deep tendon reflexes are Vital Signs: 11:31 BP 127 / 84; Pulse 85; Resp 16 S; Temp 98.6(O); Pulse Ox 98% on R/A; Weight 63.5 kg ca1 (R); Height 5 ft. 4 in. (162.56 cm) (R); Pain 5/10; 12:26 BP 104 / 72; Pulse 84; Resp 18; Temp 98.6; Pulse Ox 100% on R/A; Pain 5/10; ks7 13:34 BP 116 / 72; Pulse 72; Resp 16; Pulse Ox 100% ; Pain 0/10; ks7 14:30 BP 123 / 78; Pulse 73; Resp 16; Temp 98.3(O); Pulse Ox 100% on R/A; Pain 0/10; ks7 15:00 BP 119 / 80; Pulse 62; Resp 16; Pulse Ox 100% on R/A; Pain 0/10; ks7 15:45 BP 107 / 67; Pulse 64; Resp 18; Pulse Ox 100% on R/A; Pain 0/10; ks7 11:31 Body Mass Index 24.03 (63.50 kg, 162.56 cm) ca1 MDM: 12:27 Patient medically screened. [facility] 14:07 Data reviewed: vital signs, nurses notes, lab test result(s), radiologic studies, CT [facility] scan, plain films. 01/14 14:02 Order name: Basic Metabolic Panel; Complete Time: 15:32 [facility] 01/14 14:02 Order name: CBC with Diff; Complete Time: 15:32 [facility] 01/14 14:02 Order name: Hepatic Function; Complete Time: 15:32 [facility] 01/14 14:02 Order name: Lipase; Complete Time: 15:32 [facility] 01/14 14:02 Order name: Urine Culture [facility] 01/14 14:51 Order name: CREATININE WHOLE BLOOD; Complete Time: 15:32 EDMS 01/14 14:02 Order name: IV Saline Lock; Complete Time: 14:18 [facility] 01/14 14:02 Order name: CT Abd/Pelvis - IV Contrast Only; Complete Time: 15:32 [facility] 01/14 16:54 Order name: Urine Dipstick--Ancillary (enter results) 01/14 14:02 Order name: Labs collected and sent; Complete Time: 14:18 [facility] 01/14 14:02 Order name: Urine Dipstick-Ancillary (obtain specimen); Complete Time: 14:18 [facility] Administered Medications: Discontinued: NS 0.9% 1000 ml IV at 1 bolus Per protocol; 1000 mL bolus 14:56 Not Given (Patient Refused): Dilaudid 0.5 mg IVP once; RASS on ADMIN: Combtv4, Very ks7 Agttd3, Agttd2, Rstlss1, AlertClm0, Drwsy-1, Lt Sdtn-2, Mod Sdtn-3, Dp Sdtn-4, UnArsble-5 14:56 Not Given (Patient Refused): Dilaudid 0.5 mg IVP once; RASS on ADMIN: Combtv4, Very ks7 Agttd3, Agttd2, Rstlss1, AlertClm0, Drwsy-1, Lt Sdtn-2, Mod Sdtn-3, Dp Sdtn-4, UnArsble-5 14:56 Not Given (Patient Refused): Zofran (Ondansetron) 4 mg IVP once; over 2 minutes ks7 14:57 Drug: NS 0.9% 1000 ml Route: IV; Rate: 1 bolus; Site: left antecubital; ks7 16:20 Not Given (Patient Refused): Rocephin 1 grams IV at per protocol once; Given slow IV ks7 push per pharmacy instructions Disposition: 01/15/20 15:36 Discharged to Home. Impression: Diarrhea, unspecified, Other abdominal pain. - Condition is Stable. - Discharge Instructions: Food Choices to Help Relieve Diarrhea, Adult, Diarrhea, Adult, Diarrhea, Adult, [id number]. - Prescriptions for Bentyl 20 mg Oral Tablet - take 2 tablets by ORAL route every 6 hours As needed; 14 tablet. Bactrim DS 800- 160 mg Oral Tablet - take 1 tablet by ORAL route every 12 hours for 7 days; 14 tablet. - Medication Reconciliation Form, Thank You Letter, Antibiotic Education, Prescription Opioid Use, Work release form form. - Follow up: Ari Avalos MD; When: 2 - 3 days; Reason: Recheck today's complaints, Continuance of care, Re-evaluation by your physician. - Problem is new. - Symptoms have improved. Signatures: Dispatcher [employer] EDMO Ifeanyi Marcelo MD MD cha Acob, Cheryl, RN Sherry Antonio RN RN ks7 Corrections: (The following items were deleted from the chart) 17:35 15:36 01/15/2020 15:36 Discharged to Home. Impression: Diarrhea, unspecified; Other ks7 abdominal pain. Condition is Stable. Forms are Medication Reconciliation Form, Thank You Letter, Antibiotic Education, Prescription Opioid Use. Follow up: Ari Avalos; When: 2 - 3 days; Reason: Recheck today's complaints, Continuance of care, Re-evaluation by your physician. Problem is new. Symptoms have improved. maggie
[2020-01-15] MEDS ORDERED: CEFTRIAXONE/SWI 1gm 1 GM/10 ML SYR ONE (16:11)
[2020-01-15 17:08] LABS: Urine Blood TRACE (NEG); Urine Glucose NEGATIVE (NEG); Urine Protein NEGATIVE (NEG)
[2020-01-15 17:41] VITALS: O2SAT 100
[2020-01-15 17:44] VITALS: TEMP 98.3
[2020-01-15 17:47] VITALS: BP 107/67
== END 2020-01-15 17:35 | disposition home or self-care (01) ==
LOC: ER 11:20
DX: R19.7 Diarrhea, unspecified (principal); E78.5 Hyperlipidemia, unspecified; F41.9 Anxiety disorder, unspecified; E06.3 Autoimmune thyroiditis; Z88.1 Allergy status to other antibiotic agents; Z88.5 Allergy status to narcotic agent
CPT/HCPCS: 87088; 85025; 87086; 80048; 36415; 82565; 80076; 81003; 83690; 74177; Q9967; J0696; J7030; J2405; 99284; J1170